=== PATIENT | male | born 1955 | race African-American/Black ===

== ENCOUNTER → 2023-11-04 | Outpatient (CLI) | payer MEDICAID ==
[2023-11-04 12:41] LABS: Basophils # (auto) 0.1 10 ^3/uL (0-0.2); Eosinophils # (auto) 0.2 10 ^3/uL (0-0.8); Lymphocytes # (auto) 2.6 10 ^3/uL (0.4-5.4); Neutrophils # (auto) 2.9 10 ^3/uL (1.6-8.6)
[2023-11-04 12:43] LABS: Eosinophils % (auto) 2.9 % (0.0-7.0); Hemoglobin 13.1 g/dL (13.5-17.5); Lymphocytes % (auto) 41.8 % (10.0-50.0); Mean Corpuscular Hgb Conc. 31.1 g/dL (32.0-36.0); Mean Corpuscular Volume 70.7 fL (80.0-100.0); Monocytes # (auto) 0.4 10 ^3/uL (0-1.3); Monocytes % (auto) 7.1 % (0.0-12.0); Neutrophils % (auto) 47.2 % (37.0-80.0); Red Blood Cells 5.94 10^6/uL (4.5-5.90); Red Cell Distribution Width 15.5 % (11.8-14.3); White Blood Cell 6.1 10^3/uL (4.4-10.8)
[2023-11-04 12:45] LABS: Urine Amorphous Crystal FEW /hpf (None Seen); Urine Bacteria NONE SEEN /hpf (None Seen); Urine Blood Negative /uL (Negative); Urine Budding Yeast MANY /hpf (None Seen); Urine Clarity CLOUDY (Clear); Urine Color Colorless (Yellow); Urine Protein, UAD Negative (Negative); Urine Specific Gravity 1.016 (1.001-1.035); Urine Urobilinogen Normal (Negative); Urine WBC 8 /hpf (0 - 3)
[2023-11-04 13:22] LABS: Alanine Aminotransferase 21 U/L (7-40); Albumin 4.4 g/dL (3.2-4.8); Alkaline Phosphatase 89 U/L (46-116); Anion Gap 4 (5-15); Aspartate Aminotransferase 25 U/L (13-40); BUN/Creatinine Ratio 7.8 (10.0-20.0); Bilirubin, Total 0.3 mg/dL (0.2-1.0); Blood Urea Nitrogen 9 mg/dL (9-23); Carbon Dioxide 28 mmol/L (20-30); Chloride 109 mmol/L (98-107); Cholesterol 139 mg/dL (< 200); Glucose 105 mg/dL (74-106); HDL Cholesterol 40 mg/dL (40-59); LDL Cholesterol 81 mg/dL (< 100); Potassium 4.2 mmol/L (3.5-5.1); Sodium 141 mmol/L (136-145); Total Protein 7.3 g/dL (5.7-8.2); Triglycerides 79 mg/dL (< 150)
== END | disposition home or self-care (01) ==
LOC: LAB 12:18
PROVIDERS: ATTEND Nurse Practitioner
DX: I10 Essential (primary) hypertension (principal); E78.5 Hyperlipidemia, unspecified; R73.9 Hyperglycemia, unspecified
CPT/HCPCS: 36415; 80053; 80061; 81001; 83036; 84443; 85025

== ENCOUNTER → 2024-07-23 | Outpatient (CLI) | payer OTHER, MEDICAID ==
[~2024-07-23] VITALS: Ht 180.3 cm; Wt 89.8 kg
[~2024-07-23] MED LIST: ADENOSINE 75 MG in GIVE UN-DILUTED 0 ML IV STA
--- NOTE | 2024-07-23 14:35 | DVHCARD ---
Cardiology Stress Test [place] Treadmill Stress Test [place] Referring MD: MD Dillon Protocol: Mod. catrina (with cardiolite) Reason for referral: Chest Pain Target heart Rate:@85%: 128 Percent MPHR: 151 METS: 7.00 Resting Heart rate: 39 Resting Blood Pressure: 169/88 Exercise Heart Rate: 141 Exercise Blood Pressure: 206/97 Reason for Termination of Test: Completion of Protocol Baseline EKG: Sinus bradycardia at 39 bpm, asymptomatic Stress EKG: Sinus tachycardia with artifact Functional Capacity: Good Normal Heart Rate Response: Adequate Blood Pressure Response: Hypertensive Clinical response: Inconclusive Arrhythmia?: No Cardiolite Injected?: Yes ST-T Changes: Inconclusive Probability of Inducible Ische: Perfusion result pending Comments: Optimal functional capacity. Inconclusive test given artifact Date of Service: Jul 23, 2024 Billing Provider: SAMREEN ERICKSON MD Cardiology Common Codes: PROCEDURE ONLY Treadmill W/Cardiolite Nuclear: [id number], INTERP, RPT MARK BARRIOS QUARRY WORKER Jul 23, 2024 14:35
--- NOTE | 2024-07-23 15:43 | DVHSR ---
APPROVED REPORT Exam: Nuclear Stress Test Indication: Chest pain Stress Tech: Ayla Bang Ht: 5 ft 11 in Wt: 198 lbs BSA: 2.10 m2 BMI: 27.61 Medical History Medical History: HTN, Hyperlipidemia, Smoking, BPH Allergies: No known drug allergies Stress Test Details Stress Test: Exercise stress testing was performed using a modified [place] protocol. Reason for pharmacologic stress test: CP. HR Resting HR: 39 bpmMax Heart Rate (APMHR): 151.596501 bpm Max HR Achieved: 141 bpmTarget HR (85% APMHR): 128.868452 bpm % of APMHR: 93.38 Recovery HR: 60 bpm BP Resting BP: 169/88 mmHg Recovery BP: 138/82 mmHg ECG Resting ECG: Sinus Bradycardia Clinical Reason for Termination: Completed protocol Exercise duration: 12 min sec Exercise capacity: 7.0 METs Nurse Comments Received patient ambulatory, A&O x4 and on RA. Patient is connected to clinical research monitor and vitals ar e WNL. For furhter details please refer to stress test documentation and cardio-neuro procedural note s. LFA/RFA 22g PIVS flush well. Reviewed POC and patient verbalized understanding. Treadmill stre ss test performed per protocol with STACY Garcia present during test. firestopper technician at patient 's side to administer Cardioloite Treadmill stress test performed per protocol. firestopper technician administered Cardiolite. Patient tolerated well and all vitals returned to baseline. Patient transferred back to Nuclear [facility] in stable condition. Stress ECG Conclusion Resting ECG shows nonspecific STT wave changes. No dynamic EKG changes was noted to suggest ischemia . Resting images shows near homogeneous uptake of radioactive tracer throughout the myocardium without evidence of myocardial infarction. Stress images shows normal uptake of radioactive tracer throughout the myocardium without evidence of myocardial ischemia. Well-preserved left ventricular systolic function 61%. Impression: Negative stress test for ischemia, low risk study NM EXAM: Myocardial Perfusion REST/STRESS Imaging Protocol: Rest Tc-99m/Stress Tc-99m 1 day Resting Data Rest SPECT myocardial perfusion imaging was performed in supine position minutes following the intra venous injection of 13 mCi of Tc-99m Sestamibi. Time of rest injection: 1100 Time of rest imagin Administration Route: IV Administration Site: Right Arm Exercise Stress At peak stress, the patient was injected intravenously with 28mCi of Tc-99m Sestamibi. Time of stress injection: 1215 Time of stress imagin Administration Route: IV Administration Site: Right Arm Gated Stress SPECT was performed 30 minutes after stress injection. The images were gated to evaluate regional wall motion and calculate left ventricular ejection fracti on. Stress only was performed in the Supine position. Nuclear Conclusion ECG Findings: negative for ischemia Clinical Findings: negative for ischemia Nuclear Findings: negative for ischemia Exercise Capacity: not assessed Left Ventricular Function: normal Risk Study: low Resting ECG shows nonspecific STT wave changes. No dynamic EKG changes was noted to suggest ischemia . Resting images shows near homogeneous uptake of radioactive tracer throughout the myocardium without evidence of myocardial infarction. Stress images shows normal uptake of radioactive tracer throughout the myocardium without evidence of myocardial ischemia. Well-preserved left ventricular systolic function 61%. Impression: Negative stress test for ischemia, low risk study
== END | disposition home or self-care (01) ==
LOC: XYW 10:35
PROVIDERS: ATTEND Internal Medicine
DX: R07.9 Chest pain, unspecified (principal); I10 Essential (primary) hypertension; N40.0 Benign prostatic hyperplasia without lower urinary tract symptoms; E78.5 Hyperlipidemia, unspecified; F17.200 Nicotine dependence, unspecified, uncomplicated
CPT/HCPCS: 78452; A9500; J0153; 93017

== ENCOUNTER → 2024-11-06 | Outpatient (CLI) | payer OTHER, MEDICAID ==
[2024-11-07 09:23] LABS: Urine Bacteria None Seen /hpf (None Seen)
[2024-11-07 10:10] LABS: Basophils # (auto) 0 10 ^3/uL (0-0.2); Eosinophils # (auto) 0.1 10 ^3/uL (0-0.8); Lymphocytes # (auto) 2.2 10 ^3/uL (0.4-5.4); Monocytes # (auto) 0.4 10 ^3/uL (0-1.3); Platelet Count (auto) 218 10^3/uL (140-450); Red Cell Distribution Width 15.1 % (11.8-14.3)
[2024-11-07 10:12] LABS: Basophils % (auto) 0.5 % (0.0-2.0); Eosinophils % (auto) 1.9 % (0.0-7.0); Hematocrit 43.9 % (41.0-53.0); Lymphocytes % (auto) 36.2 % (10.0-50.0); Mean Corpuscular Hemoglobin 22.4 pg (28.0-32.0); Mean Corpuscular Hgb Conc. 31.9 g/dL (32.0-36.0); Mean Corpuscular Volume 70.4 fL (80.0-100.0); Monocytes % (auto) 6.9 % (0.0-12.0); Neutrophils # (auto) 3.2 10 ^3/uL (1.6-8.6); Neutrophils % (auto) 54.5 % (37.0-80.0); Nucleated Red Blood Cells % 0.3 %; Red Blood Cells 6.24 10^6/uL (4.5-5.90)
[2024-11-07 10:30] LABS: Urine Blood Negative /uL (Negative); Urine Clarity Clear (Clear); Urine Color Light-Yellow (Yellow); Urine Mucus FEW (None Seen); Urine Protein, UAD Negative (Negative); Urine Specific Gravity 1.016 (1.001-1.035); Urine Squamous Epithelial Cell FEW /hpf (<5); Urine Urobilinogen Normal (Negative)
[2024-11-07 12:15] LABS: Alanine Aminotransferase 22 U/L (7-40); Albumin 4.7 g/dL (3.2-4.8); Alkaline Phosphatase 80 U/L (46-116); Anion Gap 7 (5-15); Aspartate Aminotransferase 19 U/L (13-40); BUN/Creatinine Ratio 9.6 (10.0-20.0); Blood Urea Nitrogen 10 mg/dL (9-23); Carbon Dioxide 25 mmol/L (20-31); Glucose 100 mg/dL (74-106); Potassium 3.9 mmol/L (3.5-5.1); Sodium 142 mmol/L (136-145); Total Protein 7.2 g/dL (5.7-8.2)
[2024-11-07 12:17] LABS: Bilirubin, Total 0.3 mg/dL (0.2-1.0); Calcium 10.4 mg/dL (8.7-10.4); Chloride 110 mmol/L (98-107)
[2024-11-07 12:31] LABS: Cholesterol 138 mg/dL (< 200); HDL Cholesterol 50 mg/dL (40-59); LDL Cholesterol 71 mg/dL (< 100); Triglycerides 70 mg/dL (< 150)
[2024-11-07 12:48] LABS: Urine WBC < 1 /HPF (0-3)
== END | disposition home or self-care (01) ==
LOC: LAB 14:02
PROVIDERS: ATTEND Nurse Practitioner
DX: Z12.11 Encounter for screening for malignant neoplasm of colon (principal); I10 Essential (primary) hypertension; E78.5 Hyperlipidemia, unspecified; R73.9 Hyperglycemia, unspecified
CPT/HCPCS: 36415; 80053; 80061; 81001; 82274; 83036; 84153; 84443; 85025

== ENCOUNTER 2025-04-19 10:09 | Outpatient (CLI) | payer OTHER, MEDICAID ==
[2025-04-19 10:54] LABS: Hematocrit 38.8 % (41.0-53.0); Hemoglobin 12.6 g/dL (13.5-17.5); Nucleated Red Blood Cells % 0.0 %; Urine Protein, UAD Negative (Negative)
[2025-04-19 10:56] LABS: Mean Corpuscular Hemoglobin 22.6 pg (28.0-32.0); Mean Corpuscular Volume 69.4 fL (80.0-100.0)
[2025-04-19 11:18] LABS: Alanine Aminotransferase 18 U/L (7-40); Albumin 4.5 g/dL (3.2-4.8); Alkaline Phosphatase 84 U/L (46-116); Calcium 10.2 mg/dL (8.7-10.4); Carbon Dioxide 26 mmol/L (20-31); Triglycerides 87 mg/dL (< 150)
[2025-04-19 11:19] LABS: Anion Gap 3 (5-15); BUN/Creatinine Ratio 11.3 (10.0-20.0); Blood Urea Nitrogen 12 mg/dL (9-23); Cholesterol 113 mg/dL (< 200); HDL Cholesterol 41 mg/dL (40-59); Potassium 4.0 mmol/L (3.5-5.1); Sodium 141 mmol/L (136-145); Total Protein 6.9 g/dL (5.7-8.2)
[2025-04-19 11:30] LABS: Bilirubin, Total 0.2 mg/dL (0.2-1.0); Chloride 112 mmol/L (98-107); Glucose 107 mg/dL (74-106)
== END 2025-04-19 17:00 | disposition home or self-care (01) ==
LOC: LAB 10:09
PROVIDERS: ATTEND Nurse Practitioner
DX: I10 Essential (primary) hypertension (principal); E78.5 Hyperlipidemia, unspecified; R73.9 Hyperglycemia, unspecified
CPT/HCPCS: 36415; 80053; 80061; 81001; 83036; 84443; 85025